=== PATIENT | female | born 1965 | race Caucasian/White ===

== ENCOUNTER 2019-01-07 18:19 | Emergency (ER) | payer BC ==
[2019-01-07] MEDS ORDERED: Acetaminophen/Codeine 300-30 MG Tab PO ONE (18:20)
[2019-01-07] MEDS ORDERED: Ketorolac 60 MG/2 ML SDV IM ONE (18:36)
--- NOTE | 2019-01-07 18:40 | EDM.PDOC ---
ED HPI GENERAL MEDICAL PROBLEM - General Stated Complaint: SIDE PAIN AND RECTAL BLEEDING Time Seen by Provider: 01/07/19 18:19 Source of Information: Reports: Patient History Limitations: Reports: No Limitations, Uncooperative - History of Present Illness INITIAL COMMENTS - FREE TEXT/NARRATIVE: 53 y.o.w.f with a H/o Kidney stones, came to the ED due to sudden onset of RLQ abd. pain with dysuria. No trauma. S/P cholecystectomy. No N/V/D, no trauma. No SOB or chest pain. No other acute med issues. BP 174/99 RR 18 Pulse ox 99% on RA Pulse 70 BPM Temp 36.9 Onset Date: 01/07/19 Onset Time: 07:43 Duration: Getting Worse, Intermittent Location: Reports: Pelvis Quality: Reports: Burning Severity: Moderate Improves with: Reports: Medication, Rest Worsens with: Reports: Other Context: Reports: Other Right Abdomen Pain Score (Numeric/FACES): 2 - Related Data Allergies Allergy/AdvReac Type Severity Reaction Status Date / Time No Known Allergies Allergy Verified 01/07/19 19:35 Home Meds: Home Meds Ciprofloxacin HCl [Cipro] 500 mg PO BID #20 tablet 01/07/19 [Rx] Tamsulosin [Tamsulosin 24 Hr] 0.4 mg PO TID #9 cap.er 01/07/19 [Rx] ED ROS GENERAL - Review of Systems Review Of Systems: See Below Constitutional: Reports: No Symptoms HEENT: Reports: No Symptoms Respiratory: Reports: No Symptoms Cardiovascular: Reports: No Symptoms Endocrine: Reports: No Symptoms GI/Abdominal: Reports: Abdominal Pain (RLQ of abdomen) : Reports: Dysuria, Flank Pain Musculoskeletal: Reports: No Symptoms Skin: Reports: No Symptoms Neurological: Reports: No Symptoms Psychiatric: Reports: No Symptoms Hematologic/Lymphatic: Reports: No Symptoms Immunologic: Reports: No Symptoms ED EXAM, GI/ABD - Physical Exam Exam: See Below Exam Limited By: No Limitations General Appearance: Alert, WD/WN, Moderate Distress Eyes: Bilateral: Normal Appearance Ears: Normal External Exam Nose: Normal Inspection Throat/Mouth: Normal Inspection Head: Atraumatic, Normocephalic Neck: Normal Inspection, Supple, Non-Tender, Full Range of Motion Respiratory/Chest: No Respiratory Distress, Lungs Clear, Normal Breath Sounds, No Accessory Muscle Use, Chest Non-Tender Cardiovascular: Normal Peripheral Pulses, Regular Rate, Rhythm, No Edema, No Gallop, No JVD, No Murmur, No Rub GI/Abdominal Exam: Pelvis Stable, Tender (suprapubic) (Female) Exam: Deferred Rectal (Female) Exam: Deferred Back Exam: Normal Inspection, Full Range of Motion Extremities: Normal Inspection, Normal Range of Motion, Non-Tender, No Pedal Edema, Normal Capillary Refill Neurological: Alert, Oriented, CN II-XII Intact, Normal Cognition, Normal Gait Psychiatric: Normal Affect, Normal Mood Skin Exam: Warm, Dry, Intact, Normal Color, No Rash Lymphatic: No Adenopathy Course - Vital Signs Text/Narrative:: 53 y.o.w.f with a H/o Kidney stones, came to the ED due to sudden onset of RLQ abd. pain with dysuria. No trauma. S/P cholecystectomy. No N/V/D, no trauma. No SOB or chest pain. No other acute med issues. BP 174/99 RR 18 Pulse ox 99% on RA Pulse 70 BPM Temp 36.9 PE: WNWD wwf with RLQ abd. pain Imaging: CT Abd/pelvis: Urolithiasis with hydronephrosis right UVJ Labs: CBC nl BMP nl UA pos for UTI with hematuria Impression: urolithiasis with Hydronephrosis. UTI Tx: Toradol, Flomax, Levaquin, Pyridium Reexam: 100 % improved Plan: D/C with instructions Last Recorded V/S: Last Vital Signs Temp 36.5 C 01/07/19 20:45 Pulse 78 01/07/19 20:45 Resp 16 01/07/19 20:45 BP 149/92 H 01/07/19 20:45 Pulse Ox 98 01/07/19 20:45 - Orders/Labs/Meds Orders: Active Orders 24 hr Category Date Time Status Abdomen Pelvis wo Cont [CT] Stat Exams 01/07/19 19:58 Taken CULTURE URINE [RM] Stat Lab 01/07/19 18:40 Received Labs: Laboratory Tests 01/07/19 01/07/19 01/07/19 Range/Units 18:40 18:40 18:45 WBC 8.4 (4.5-12.0) X10-3/uL RBC 4.65 (3.23-5.20) x10(6)uL Hgb 13.2 (11.5-15.5) g/dL Hct 39.8 (30.0-51.3) % MCV 85.8 (80-96) fL MCH 28.5 (27.7-33.6) pg MCHC 33.2 (32.2-35.4) g/dL RDW 13.1 (11.5-15.5) % Plt Count 279 (125-369) X10(3)uL MPV 8.0 (7.4-10.4) fL Neut % (Auto) 65.4 (46-82) % Lymph % (Auto) 26.5 (13-37) % [place] % (Auto) 5.0 (4-12) % Eos % (Auto) 3 (1.0-5.0) % Baso % (Auto) 1 (0-2) % Neut # (Auto) 5.5 (1.6-8.3) # Lymph # (Auto) 2.2 (0.6-5.0) # [place] # (Auto) 0.4 (0.0-1.3) # Eos # (Auto) 0.2 (0.0-0.8) # Baso # (Auto) 0.1 (0.0-0.2) # Sodium (135-145) mmol/L Potassium (3.5-5.3) mmol/L Chloride (100-110) mmol/L Carbon Dioxide (21-32) mmol/L BUN (7-18) mg/dL Creatinine (0.55-1.02) mg/dL Est Cr Clr Drug Dosing Estimated GFR (MDRD) (>60) BUN/Creatinine Ratio (9-20) Glucose (80-116) mg/dL Calcium (8.6-10.2) mg/dL Urine Color Yellow (YELLOW) Urine Appearance Clear (CLEAR) Urine pH 5.0 (5.0-6.5) Ur Specific [place] 1.020 (1.010-1.025) Urine Protein 30 H (NEGATIVE) mg/dL Urine Glucose (UA) Normal (NORMAL) mg/dL Urine Ketones Negative (NEGATIVE) mg/dL Urine Occult Blood Moderate H (NEGATIVE) Urine Nitrite Positive H (NEGATIVE) Urine Bilirubin Negative (NEGATIVE) Urine Urobilinogen Normal (NEGATIVE) mg/dL Ur Leukocyte Esterase Large H (NEGATIVE) Urine RBC 20-30 H (0-5) Urine WBC 20-30 H (0-5) Ur Squamous Epith Cells Few H (NS,R,O) Urine Bacteria Moderate H (NS) Urine HCG, Qual Negative (NEGATIVE) 01/07/19 Range/Units 18:45 WBC (4.5-12.0) X10-3/uL RBC (3.23-5.20) x10(6)uL Hgb (11.5-15.5) g/dL Hct (30.0-51.3) % MCV (80-96) fL MCH (27.7-33.6) pg MCHC (32.2-35.4) g/dL RDW (11.5-15.5) % Plt Count (125-369) X10(3)uL MPV (7.4-10.4) fL Neut % (Auto) (46-82) % Lymph % (Auto) (13-37) % [place] % (Auto) (4-12) % Eos % (Auto) (1.0-5.0) % Baso % (Auto) (0-2) % Neut # (Auto) (1.6-8.3) # Lymph # (Auto) (0.6-5.0) # [place] # (Auto) (0.0-1.3) # Eos # (Auto) (0.0-0.8) # Baso # (Auto) (0.0-0.2) # Sodium 140 (135-145) mmol/L Potassium 4.1 (3.5-5.3) mmol/L Chloride 103 (100-110) mmol/L Carbon Dioxide 25 (21-32) mmol/L BUN 22 H (7-18) mg/dL Creatinine 0.9 (0.55-1.02) mg/dL Est Cr Clr Drug Dosing TNP Estimated GFR (MDRD) > 60 (>60) BUN/Creatinine Ratio 24.4 H (9-20) Glucose 97 (80-116) mg/dL Calcium 9.4 (8.6-10.2) mg/dL Urine Color (YELLOW) Urine Appearance (CLEAR) Urine pH (5.0-6.5) Ur Specific [place] (1.010-1.025) Urine Protein (NEGATIVE) mg/dL Urine Glucose (UA) (NORMAL) mg/dL Urine Ketones (NEGATIVE) mg/dL Urine Occult Blood (NEGATIVE) Urine Nitrite (NEGATIVE) Urine Bilirubin (NEGATIVE) Urine Urobilinogen (NEGATIVE) mg/dL Ur Leukocyte Esterase (NEGATIVE) Urine RBC (0-5) Urine WBC (0-5) Ur Squamous Epith Cells (NS,R,O) Urine Bacteria (NS) Urine HCG, Qual (NEGATIVE) Meds: Medications Discontinued Medications Generic Name Dose Route Start Last Admin Trade Name Carlos Alberto PRN Reason Stop Dose Admin Iopamidol 150 ml 01/07/19 19:32 Isovue-370 (76%) IV 01/07/19 19:33 ONETIME ONE Ketorolac Tromethamine 60 mg 01/07/19 18:36 01/07/19 18:40 Toradol IM 01/07/19 18:37 60 mg ONETIME ONE Administration Levofloxacin 500 mg 01/07/19 19:03 01/07/19 19:23 Levaquin PO 01/07/19 19:04 500 mg ONETIME ONE Administration Phenazopyridine HCl 95 mg 01/08/19 09:00 Urinary Pain Relief PO TIDPC MEE Phenazopyridine HCl 95 mg 01/08/19 19:17 01/07/19 19:23 Urinary Pain Relief PO 01/08/19 19:18 95 mg ONETIME ONE Administration Phenazopyridine HCl Confirm 01/07/19 19:23 01/07/19 20:25 Urinary Pain Relief Administered 01/07/19 19:24 Not Given Dose 95 mg .ROUTE .STK-MED ONE Tamsulosin HCl 0.4 mg 01/07/19 20:22 01/07/19 20:29 Flomax PO 01/07/19 20:23 0.4 mg ONETIME ONE Administration Departure - Departure Time of Disposition: 20:32 Disposition: Home, Self-Care 01 Condition: Good Clinical Impression: Kidney stone UTI (urinary tract infection) Qualifiers: Urinary tract infection type: acute cystitis Hematuria presence: with hematuria Qualified Code(s): N30.01 - Acute cystitis with hematuria Hydronephrosis Qualifiers: Hydronephrosis type: with renal calculous obstruction Qualified Code(s): N13.2 - Hydronephrosis with renal and ureteral calculous obstruction - Discharge Information Prescriptions: Ciprofloxacin HCl [Cipro] 500 mg PO BID #20 tablet Tamsulosin [Tamsulosin 24 Hr] 0.4 mg PO TID #9 cap.er Instructions: Kidney Stones Referrals: PCP,Not In Area [Primary Care Provider] - Forms: ED Department Discharge Additional Instructions: Please f/u with your urologist in AM. Take Flomax as recommended. Please take Motrin 60o mg every 8 hours with food for mod pain, Percocet for severe pain only. please come back to the ed if your symptoms get worse acutely. - My Orders Last 24 Hours: My Active Orders 01/07/19 18:40 CULTURE URINE [RM] Stat 01/07/19 19:58 Abdomen Pelvis wo Cont [CT] Stat - Assessment/Plan Last 24 Hours: My Active Orders 01/07/19 18:40 CULTURE URINE [RM] Stat 01/07/19 19:58 Abdomen Pelvis wo Cont [CT] Stat
[2019-01-07] MEDS ORDERED: Levofloxacin 500 MG Tab PO ONE (19:03)
[2019-01-07] MEDS ORDERED: Phenazopyridine 95 MG Tab ONE (19:23)
[2019-01-07] MEDS ORDERED: Iopamidol 755 MG/ML 150 ML Bottle IV ONE (19:32)
[2019-01-07] MEDS ORDERED: Tamsulosin 0.4 MG Cap.ER PO ONE (20:22)
[2019-01-08] MEDS ORDERED: Phenazopyridine 95 MG Tab PO SCH (09:00)
--- NOTE | 2019-01-08 10:45 | CT ---
INDICATION: Right lower quadrant abdominal pain, question calculus. CT ABDOMEN AND PELVIS WITHOUT CONTRAST: Spiral 3.75 mm axial sections were obtained through the abdomen and pelvis with sagittal and coronal reconstructions, 01/07/19 - no comparisons. Total exam DLP = 2,015.98 mGy-cm. Hydronephrosis and hydroureter are noted on the right down to the level of the distal ureter at the uterovesical junction, where a 6.4 x 9.7 mm calculus is lodged, producing the obstructive uropathy on the right. There are multiple calculi noted in the left kidney. On the right, there is some renal calcinosis, which is relatively minimal compared with the left kidney. Both kidneys show evidence of renal cortical scarring, but there is more severe cortical scarring on the left than on the right. The gallbladder is absent, compatible with history of its removal. The common bile duct did not appear to be dilated. The liver appeared grossly normal, as did the adrenal glands, spleen, and pancreas. No retroperitoneal mass was seen. There are some calcifications in the aorta and right iliac artery. The appendix appeared normal, visualized on coronal images #37 through #42. No evidence of appendicitis is seen. No free air or bowel obstruction was identified. Calcification along the posterior uterus may represent a small exophytic calcified fibroid. Slight thickening of the urinary bladder wall is suggested, which could be on the basis of cystitis and should be correlated clinically. The heart is normal in size. No pericardial effusion was seen. Lower lung nam and pleural spaces visualized appeared normal. IMPRESSION: 1. Severe obstructive uropathy on the right due to a 6.4 x 9.7 mm calculus at the ureterovesical junction. 2. Renal calcinosis. 3. Mild ASD. 4. Post cholecystectomy. 5. Normal appendix. 6. Slight thickening of the urinary bladder wall is suggested, which may be on the basis of cystitis - correlate clinically. Report was called to Dr. Gallagher at 1820 hours on 01/07/19. [facility]
[2019-01-08] MEDS ORDERED: Phenazopyridine 95 MG Tab PO ONE (19:17)
== END 2019-01-07 20:50 | disposition home or self-care (01) ==
LOC: FB.ED 18:19
DX: N13.2 Hydronephrosis with renal and ureteral calculous obstruction (principal); N30.01 Acute cystitis with hematuria
CPT/HCPCS: 36415; 74176; 80048; 81001; 81025; 85025; 87086; 87088; 87186; 96372; 99284; A9270; J1885